=== PATIENT | female | born 1965 | race Caucasian/White ===

== ENCOUNTER 2020-02-19 11:45 | Outpatient (CLI) | payer BC, SELFPAY ==
--- NOTE | ~2020-02-19 | XR_ITS ---
XR knee LT 3V DATE: 02/19/2020 12:13 INDICATION: Left knee pain medially and anteriorly. No injury. TECHNIQUE: [place] and standing AP and lateral views COMPARISON: None FINDINGS: There is periarticular spurring at the patellofemoral and medial compartments, mild loss of height of medial compartment joint space. There is hypertrophic change of the lateral tibial spine. No fracture, dislocation, periosteal reaction or bone destruction or joint effusion. No radiopaque in tra-articular loose body or chondrocalcinosis. IMPRESSION: Osteoarthritis at the medial and patellofemoral compartments primarily Reviewed, dictated and finalized at location A. IMPRESSION: Osteoarthritis at the medial and patellofemoral compartments beck [place]
--- NOTE | ~2020-02-19 | US_ITS ---
EXAMINATION: US venous doppler [facility] DATE: 02/19/2020 12:37 INDICATION: Left lower limb pain TECHNIQUE: Grayscale ultrasound images without and with compression and Doppler ultrasound images of the left lower extremity veins were obtained. COMPARISON: None. FINDINGS: The visualized portions of left common femoral vein, profunda (deep) femoral vein, femoral vein, popl iteal vein, peroneal veins, posterior tibial veins, gastrocnemius vein and greater saphenous vein out flow are patent. 2.1 x 1.6 x 1.1 cm anechoic Agosto's cyst at the left popliteal fossa. IMPRESSION: 1. No deep venous thrombosis in the left lower limb. 2. Small left Agosto's cyst. Reviewed, dictated and finalized at location A.
--- NOTE | ~2020-02-19 | XR_ITS ---
XR humerus LT DATE: 02/19/2020 12:13 INDICATION: Distal left humeral area pain TECHNIQUE: AP and lateral views COMPARISON: None FINDINGS: No fracture or dislocation, periosteal reaction or bone destruction. Normal alignment at th e acromioclavicular, glenohumeral and elbow joints. IMPRESSION: Negative Reviewed, dictated and finalized at location A. IMPRESSION: Negative
[2020-02-19 12:48] LABS: Basophils Absolute Auto 0.1 K/mm3 (0.0-0.1); Basophils Percent Auto 1.1 % (0.2-1.2); Eosinophils Absolute Auto 1.4 K/mm3 (0-0.3); Eosinophils Percent Auto 16.7 % (0-4.4); Hematocrit 41.8 % (37.0-47.0); Immature Granulocyte Absolute 0.02 K/mm3 (0.00-0.031); Immature Granulocyte Percent A 0.2 % (0-0.5); Lymphocytes Absolute Auto 2.66 K/mm3 (0.9-3.2); Lymphocytes Percent Auto 32.4 % (18.3-44.2); Mean Corpuscular HGB Conc 33.5 g/dl (32-36); Mean Corpuscular Hemoglobin 31.4 pg (26-34); Mean Corpuscular Volume 93.7 fl (80-100); Monocytes Absolute Auto 0.6 K/mm3 (0.1-0.6); Monocytes Percent Auto 6.9 % (2.6-8.5); Neutrophils Absolute Auto 3.5 K/mm3 (1.3-6.7); Neutrophils Percent Auto 42.7 % (45.5-73.1); Platelet Count Result 286 k/mm3 (150-375); Red Blood Count 4.46 M/mm3 (4.2-5.4); White Blood Count 8.2 K/mm3 (4.5-10.0)
[2020-02-19 13:00] LABS: Hemoglobin A1C 5.5 % (<5.7)
[2020-02-19 13:03] LABS: Alanine Aminotransferase 21 U/L (4-35); Albumin Level 4.7 g/dL (3.5-5.1); Alkaline Phosphatase 63 U/L (38-126); Aspartate Amino Transferase 28 U/L (14-36); Bilirubin,Total 0.5 mg/dL (0.2-1.3); Blood Urea Nitrogen 10 mg/dL (7-17); Calcium 9.6 mg/dL (8.4-10.2); Carbon Dioxide 32 mmol/L (22-30); Chloride 103 mmol/L (98-107); Cholesterol 228 mg/dL (0-200); Estimated Glomerular Filt Rate > 60; Glucose 100 mg/dL (65-105); HDL Direct 51 mg/dL; Magnesium 2.2 mg/dL (1.6-2.3); Potassium 3.7 mmol/L (3.4-5.0); Sodium 139 mmol/L (137-145); Triglycerides 207 mg/dL (<150)
[2020-02-19 13:14] LABS: LDL Cholesterol Direct 128 mg/dL
[2020-02-19 13:42] LABS: Vitamin D 25 Hydroxy 32.8 ng/mL
== END 2020-02-19 11:46 | disposition home or self-care (01) ==
LOC: ANHIMG 11:54
PROVIDERS: PCP Family Medicine; Visit Provider Family Medicine
DX: M79.669 Pain in unspecified lower leg (principal); M79.602 Pain in left arm; M25.562 Pain in left knee; Z13.0 Encounter for screening for diseases of the blood and blood-forming organs and certain disorders involving the immune mechanism; R35.0 Frequency of micturition; Z13.220 Encounter for screening for lipoid disorders; R25.2 Cramp and spasm; Z13.21 Encounter for screening for nutritional disorder
CPT/HCPCS: 36415; 73060; 73562; 80053; 80061; 82306; 83036; 83735; 84443; 85025; 93971

== ENCOUNTER 2020-05-02 16:16 | Emergency (ER) | payer BC, SELFPAY ==
--- NOTE | ~2020-05-02 | XR_ITS ---
EXAMINATION: XR chest 2V 05/02/2020 16:49 INDICATION: Chest pain PROCEDURE: 2 view chest COMPARISON: No prior studies for comparison. FINDINGS: The lungs are clear. The cardiomediastinal silhouette is within normal limits. There are no pleural effusions. There is no pneumothorax suspected. IMPRESSION: 1: NO ACUTE CARDIOPULMONARY DISEASE. Reviewed, dictated and finalized at location A.
--- NOTE | 2020-05-02 16:19 | ECG_ITS ---
Measurements Intervals [place] Rate: 68 P: 27 HI: 160 QRS: -40 QRSD: 86 T: 38 QT: 373 QTc: 398 Interpretive Statements SINUS RHYTHM LEFT AXIS DEVIATION BORDERLINE ECG Electronically Signed On 05-02-2020 16:32:32 CDT by Sean Richard D.O.
[2020-05-02 16:23] VITALS: BP 184/86; PULSE 77; RESP 16; TEMP 37.3; O2SAT 100
[2020-05-02 16:39] LABS: Basophils Absolute Auto 0.1 K/mm3 (0.0-0.1); Basophils Percent Auto 1.1 % (0.2-1.2); Eosinophils Absolute Auto 1.1 K/mm3 (0-0.3); Eosinophils Percent Auto 11.9 % (0-4.4); Hemoglobin 14.5 g/dL (12.0-15.0); Immature Granulocyte Absolute 0.02 K/mm3 (0.00-0.031); Immature Granulocyte Percent A 0.2 % (0-0.5); Lymphocytes Absolute Auto 2.63 K/mm3 (0.9-3.2); Lymphocytes Percent Auto 29.6 % (18.3-44.2); Mean Corpuscular HGB Conc 33.7 g/dl (32-36); Mean Corpuscular Hemoglobin 31.6 pg (26-34); Mean Corpuscular Volume 93.7 fl (80-100); Mean Platelet Volume 8.7 fl (7.4-10.4); Monocytes Absolute Auto 0.7 K/mm3 (0.1-0.6); Monocytes Percent Auto 7.6 % (2.6-8.5); Neutrophils Absolute Auto 4.4 K/mm3 (1.3-6.7); Neutrophils Percent Auto 49.6 % (45.5-73.1); Platelet Count Result 280 k/mm3 (150-375); Red Blood Count 4.59 M/mm3 (4.2-5.4); Red Cell Distribution Width 11.9 % (11.5-14.5); White Blood Count 8.9 K/mm3 (4.5-10.0)
[2020-05-02 16:51] LABS: Anion Gap 10.6 mmol/L (7-16); Blood Urea Nitrogen 15 mg/dL (7-17); Calcium 9.9 mg/dL (8.4-10.2); Carbon Dioxide 28 mmol/L (22-30); Chloride 101 mmol/L (98-107); Estimated CRCL calculation 72 ml/min; Estimated Glomerular Filt Rate > 60; Glucose 94 mg/dL (65-105); Potassium 3.6 mmol/L (3.4-5.0); Sodium 136 mmol/L (137-145)
[2020-05-02 16:52] LABS: Partial Thromboplastin Time 30.1 SECONDS (22.3-36.8); Prothrombin Time 12.7 Seconds (11.1-14.7)
[2020-05-02 17:03] LABS: Troponin I < 0.012 ng/mL (0.000-0.034)
[2020-05-02] MEDS: PANTOPRAZOLE SODIUM IV 40 MG VIAL IV PUSH (19:37)
--- NOTE | 2020-05-02 19:43 | ED.GENADULT ---
HPI - General Adult General Chief complaint: Chest Pain Stated complaint: SYMPTOMS OF A HEART ATTACK Time Seen by Provider: 05/02/20 18:58 Source: patient Mode of arrival: ambulatory Limitations: no limitations History of Present Illness HPI narrative: This patient is a 54 year old female who presents for evaluation of multiple symptoms. She states for ther past 3 weeks she has been having intermittent right mid back pain that radiates to her abdomen. This pain occurs 10-15 times a day. She thinks it may improve with eating. She denies sob, nausea , vomiting or fever with this pain. She has not experienced this pain since this morning. She also reports intermittent episodes of indigestion in which she constantly belches for 10 days. She denies this symptoms being exacerbated by exertion. She denies sob with this. She also reports intermittent left leg pain and aching. She also has left arm pain that is intermittent and random . These 2 pain locations due not have at the same. She has not symptoms at this time. Related Data Home Medications Medication Instructions Recorded Confirmed meloxicam 05/02/20 05/02/20 Allergies Allergy/AdvReac Type Severity Reaction Status Date / Time sulfur dioxide Allergy Unknown Itching Verified 05/02/20 16:17 Review of Systems Review of Systems: All systems reviewed & are unremarkable except as noted in HPI and below Constitutional: Constitutional: Denies chills and Denies fever(s) Cardiovascular: Cardiovascular: Denies chest pain Respiratory: Respiratory: Denies cough and Denies dyspnea Gastrointestinal: Gastrointestinal: Denies abdominal pain, Denies diarrhea, Denies nausea and Denies vomiting Musculoskeletal: Musculoskeletal: Reports back pain and Reports myalgias Neurologic: Denies vertigo, Denies headache(s), Denies focal weakness and Reports numbness PMFSH Social History Social History Smoking status: Never smoker Second hand tobacco smoke exposure: Yes Alcohol intake: current Substance use: never Gender identity (if verbalized by the patient): Female Agree to blood products: Yes Exam Narrative: Exam Narrative: GENERAL: Well-appearing, well-nourished, and in no acute distress. HEAD: Normocephalic, atraumatic EYES: PERRLA and EOMI, conjunctiva clear without discharge EARS: TM's clear bilaterally without erythema or dullness NOSE: Nares clear, no rhinorrhea or epistaxis THROAT:Mucous membranes moist, Oropharynx normal without erythema, exudate, peritonsillar swelling or fluctuance NECK: Supple, without lymphadenopathy or mass RESPIRATORY: No respiratory distress, Airway patent, Respirations non-labored, Clear to auscultation without rales, rhonchi or wheeze HEART: Regular rate and rhythm. No murmur heard. Normal peripheral pulses. ABDOMEN: Soft, nontender, nondistended, normal active bowel sounds. No masses. No rebound or guarding, No organomegaly. EXTREMITIES: No edema, normal strength with full range of motion. SKIN: Warm, dry, normal color without rash NEURO: Alert and oriented x3. CN 2-12 grossly intact. No focal deficits. PSYCH: Normal mood and affect. Course Reevaluation(s) Reevaluation #1: PAtient has no complaints. I discussed what she is describing may be her gallbladder. Her pain is right flank and not left chest. I do not think this is cardiac. I discussed case with DR. Covarrubias inventory control coordinator for Dr. Ariza. He states we can stop patient currently HTN changemed and start benicar Date: 05/02/20 Time: 21:42 Vital Signs Vital signs: Vital Signs Temperature 99.1 F 05/02/20 16:23 Pulse Rate 77 05/02/20 16:23 Respiratory Rate 16 05/02/20 16:23 Blood Pressure 184/86 H 05/02/20 16:23 Pulse Oximetry 100 05/02/20 16:23 Temperature 99.1 F 05/02/20 16:23 Pulse Rate 77 05/02/20 22:19 Respiratory Rate 18 05/02/20 22:19 Blood Pressure 167/84 H 04/05
[2020-05-02 20:09] LABS: Add Urine Microscopic? YES; Appearance Urine Clear (Clear); Bacteria Urine Trace /hpf; Bilirubin Urine Negative (Negative); Blood Urine Negative (Negative); Color Urine Straw (Yellow); Glucose Urine UA Negative (Negative); Ketones Urine Negative (Negative); Leukocyte Esterase Ur 1+ LEU/UL (Negative); Mucus Urine Rare /lpf; Nitrate Urine Negative (Negative); Protein Urine Negative (Negative); RBC Urine 0-2 /hpf (0-2); Specific Grav Ur 1.008 (1.001-1.035); Squamous Epithelial Cell Urine Moderate /hpf (Few); Urobilinogen Urine Negative mg/dL (<2.0)
[2020-05-02 20:10] LABS: Partial Thromboplastin Time 29.7 SECONDS (22.3-36.8); Prothrombin Time 12.7 Seconds (11.1-14.7)
[2020-05-02 20:13] LABS: Alanine Aminotransferase 27 U/L (4-35); Albumin Level 4.6 g/dL (3.5-5.1); Alkaline Phosphatase 65 U/L (38-126); Aspartate Amino Transferase 31 U/L (14-36); Bilirubin,Total 0.6 mg/dL (0.2-1.3); Lipase 72 U/L (23-300); Magnesium 2.3 mg/dL (1.6-2.3)
[2020-05-02 20:16] VITALS: BP 170/90; PULSE 69; RESP 18; O2SAT 98
[2020-05-02 20:24] LABS: D Dimer 0.27 ug/mL (<0.48)
[2020-05-02 20:25] LABS: Troponin I < 0.012 ng/mL (0.000-0.034)
[2020-05-02 22:19] VITALS: BP 167/84; PULSE 77; RESP 18; O2SAT 98
== END 2020-05-02 22:24 | disposition home or self-care (01) ==
PROVIDERS: Emergency Medicine; Emergency Provider General Practice; PCP Family Medicine
DX: I10 Essential (primary) hypertension (principal); R10.9 Unspecified abdominal pain; R94.31 Abnormal electrocardiogram [ECG] [EKG]
CPT/HCPCS: 36415; 71046; 80048; 80076; 81001; 83690; 83735; 84484; 85025; 85380; 85610; 85730; 93005; 96374; 99284; C9113

== ENCOUNTER 2020-05-14 10:36 | Outpatient (CLI) | payer BC, SELFPAY ==
--- NOTE | ~2020-05-14 | US_ITS ---
EXAMINATION: US abdomen complete EXAM DATE: 05/14/2020 11:33 INDICATION: Right upper quadrant abdominal pain. TECHNIQUE: Multiple grayscale and Doppler images of the complete abdomen were obtained (by a technolo gist who performed the scan) and subsequently reviewed. There is no prior study for comparison. FINDINGS: The abdominal aorta is normal in caliber. Visualized portion IVC is patent. The pancreatic head a nd body are normal in appearance. The pancreatic tail is not visualized. The liver has normal echogenicity and contour. There are no focal liver lesions identified. There is no evidence of intrahepatic biliary duct dilation. Portal venous flow was seen in the hepatopedal , normal direction and has normal Doppler waveform. Common bile duct measures 4 mm, which is normal. The gallbladder wall is normal in thickness, with ex pected amount of distention. No sonographic evidence of pericholecystic fluid. There is no cholelit hiases. Technologist performing exam reports patient did not demonstrate sonographic Herman's sign. Please note that this sign is less reliable in patients who have received pain medication. Right kidney: There is normal contour and echogenicity. It measures 9.7 x 5.3 x 4.7 centimeters. T here are no focal renal lesions identified. There is no hydronephrosis. Left kidney: There is normal contour and echogenicity. It measures 10.7 x 5.9 x 4.8 centimeters. T here are no focal renal lesions identified. There is no hydronephrosis. The spleen measures 10 centimeters and is morphologically normal. IMPRESSION: 1. Unremarkable complete abdominal ultrasound exam. Reviewed, dictated and finalized at location A.
== END 2020-05-14 10:37 | disposition home or self-care (01) ==
PROVIDERS: PCP Family Medicine; Visit Provider Family Medicine
DX: R10.11 Right upper quadrant pain (principal)
CPT/HCPCS: 76700

== ENCOUNTER 2020-05-21 10:18 | Emergency (ER) | payer BC, SELFPAY ==
[2020-05-21 10:43] VITALS: BP 174/73; PULSE 75; RESP 20; TEMP 36.7; O2SAT 100
--- NOTE | 2020-05-21 10:53 | ED.FEMALEGU ---
HPI - Female Genitourinary General Chief complaint: Urogenital-Female Stated complaint: uti History of Present Illness HPI Narrative: This is a 54-year-old female comes in complaining of left back pain and lower abdominal pain states that the symptoms started approximately 3 to 4 days ago she started taking cranberry juice because it was when she urinated when she felt the pain the most. Symptoms have not went away patient states she is having frequency and urgency and it feels like when she had a UTI in the past. Patient denies any fever nausea vomiting and/or diarrhea Related Data Home Medications Medication Instructions Recorded Confirmed ospemifene 60 mg tablet 60 mg PO DAILY 05/03/20 05/21/20 Allergies Allergy/AdvReac Type Severity Reaction Status Date / Time sulfur dioxide Allergy Unknown Itching Verified 05/03/20 10:43 Review of Systems Review of Systems: Narrative: CONSTITUTIONAL: Denies fever, chills, or sweats. EYES: Denies visual changes, redness, or discharge. ENT: Denies rhinorrhea, congestion, sore throat, or otalgia. CARDIOVASCULAR:Denies chest pain, palpitations, or edema. RESPIRATORY: Denies cough or dyspnea. GASTROINTESTINAL: Denies abdominal pain, nausea, vomiting, or diarrhea. GENITOURINARY: Positive dysuria or hematuria. SKIN:[Denies rash or itching. MUSCULOSKELETAL:Denies back pain, joint pain, or myalgia. NEUROLOGIC: Denies headache, numbness, or weakness. PSYCHIATRIC:Denies anxiety or depression [facility] Family History Family History (Updated 05/03/20 @ 13:58 by Denisa Ariza DO) Father Hypertension Heart disease, Onset Age: 55 Grandparent Family history of alcoholism Social History Social History Smoking status: Never smoker Second hand tobacco smoke exposure: Yes Alcohol intake: current Substance use: never Gender identity (if verbalized by the patient): Female Agree to blood products: Yes Comments At time as signature, I have reviewed and agree with nursing past medical, social, surgical and family history. Please see nursing chart for further information. There is no relevant family history pertinent to the presenting complaint. Exam Narrative: Exam Narrative: GENERAL:Well-appearing, well-nourished, and in no acute distress. HEAD:Normocephalic, atraumatic. EYES: PERRLA and EOMI. ENT: Nares clear, no rhinorrhea or epistaxis. Mucous membranes moist. NECK: Supple. CHEST: Clear to auscultation. No respiratory distress. HEART: Regular rate and rhythm. No murmur heard. Normal peripheral pulses. ABDOMEN: Soft, nontender, nondistended, normal active bowel sounds. Lower left pain with palpitations mid lower abdominal pressure with potation's EXTREMITIES: Normal range of motion. No edema. SKIN: Warm, dry, no rash. NEURO: No focal deficits. Alert and oriented x3. Course Vital Signs Vital signs: Vital Signs Temperature 98.1 F 05/21/20 10:43 Pulse Rate 75 05/21/20 10:43 Respiratory Rate 20 05/21/20 10:43 Blood Pressure 174/73 H 05/21/20 10:43 Pulse Oximetry 100 05/21/20 10:43 Temperature 98.1 F 05/21/20 10:43 Pulse Rate 75 05/21/20 10:43 Respiratory Rate 20 05/21/20 10:43 Blood Pressure 174/73 H 05/21/20 10:43 Pulse Oximetry 100 05/21/20 10:43 MDM - Female Genitourinary MDM Narrative Medical decision making narrative: Appendicitis cholecystitis Differential Diagnosis Differential diagnosis: Likely urinary tract infection, cervicitis and cystitis Lab Data Labs: Urine Glucose Negative Reference Range: Negative Urine Bilirubin Negative Reference Range: Negative Urine Ketone Negative Reference Range: Negative Urine Specific [place] 1.005 Reference Range:1.001-1.035 Urine Blood Negative Reference Range: Negative * *
== END 2020-05-21 11:04 | disposition home or self-care (01) ==
PROVIDERS: Emergency Provider Nurse Practitioner Family; PCP Family Medicine
DX: N30.90 Cystitis, unspecified without hematuria (principal); I10 Essential (primary) hypertension
CPT/HCPCS: 81003; 87086; 99213; G0463

== ENCOUNTER 2020-06-05 08:42 | Outpatient (CLI) | payer BC, SELFPAY ==
--- NOTE | 2020-06-05 09:01 | EST_ITS ---
Patient Info Name: Milagros Hobbs Age: 54 years : 1965 Gender: Female Ht: 63 in Wt: 191 lbs BSA: 2.00 m2 BP: 120 / 67 mmHg Exam Date: 06/05/2020 9:27 AM Exam Location: [facility] Patient Status: Outpatient Admit Date: 06/05/2020 Staff Ordering Physician: Denisa Ariza DO Gaming Floor Supervisor: Sanford Herman RDCS, RT Attending Provider: CARROL JARAMILLO Referring Physician: To ELKINS; Exercise Technologist: Sanford Herman RDCS, RT Exam Type: CA stress echo Study Info Indications R07.89 - Other chest pain Treadmill exercise stress echocardiogram is performed. Summary 1. 1. Negative Daniel exercise stress test for ischemic ST changes by ECG criteria. 2. 2. Good functional capacity, achieving 10 METs of workload. 3. 3. Appropriate HR response to exercise. 4. 4. Appropriate HR recovery at 1 minute post exercise. 5. 5. Incidental finding of right ventricular enlargement. 6. 6. Negative stress echocardiogram for ischemia by wall motion analysis. 7. 7. Patient informed of the above results. Stress Echo Findings Left Ventricle Appropriate increase in LV endocardial thickening with systole. Appropriate augmentation of contractility with systole. No wall motion abnormality. Left Ventricle Normal LV systolic function, no wall motion abnormality. Right Ventricle Incidental finding of moderate RV enlargement. Tricuspid Valve Name Value Normal TV Regurgitation Doppler TR Peak Velocity 227.65 cm/s TR Peak Gradient 21 mmHg Estimated PAP/RSVP RA Pressure 10 mmHg <=5 PA Systolic Pressure 31 mmHg <36 RV Systolic Pressure 31 mmHg <36 Protocol: Daniel Stress ECG Details Stage: REST Duration (min): 11 min : 0 sec Speed (mph): 0.0 Grade (%): 0 HR (bpm): 65 SBP (mmHg): 120 DBP (mmHg): 63 METS: --- Stage: REST Duration (min): 15 min : 39 sec Speed (mph): 0.0 Grade (%): 0 HR (bpm): 84 SBP (mmHg): 120 DBP (mmHg): 63 METS: --- Stage: STAGE 1 Duration (min): 1 min : 0 sec Speed (mph): 1.7 Grade (%): 10 HR (bpm): 99 SBP (mmHg): 120 DBP (mmHg): 63 METS: --- Stage: STAGE 1 Duration (min): 2 min : 0 sec Speed (mph): 1.7 Grade (%): 10 HR (bpm): 108 SBP (mmHg): 120 DBP (mmHg): 63 METS: --- Stage: STAGE 1 Duration (min): 3 min : 0 sec Speed (mph): 1.7 Grade (%): 10 HR (bpm): 109 SBP (mmHg): 164 DBP (mmHg): 67 METS: --- Stage: STAGE 2 Duration (min): 1 min : 0 sec Speed (mph): 2.5 Grade (%): 12 HR (bpm): 118 SBP (mmHg): 164 DBP (mmHg): 67 METS: --- Stage: STAGE 2 Duration (min): 2 min : 0 sec Speed (mph): 2.5 Grade (%): 12 HR (bpm): 12
== END 2020-06-05 08:43 | disposition home or self-care (01) ==
PROVIDERS: PCP Family Medicine; Visit Provider Family Medicine
DX: R07.9 Chest pain, unspecified (principal)
CPT/HCPCS: 93351

== ENCOUNTER 2020-06-19 10:00 | Outpatient (RCR) | payer BC, SELFPAY ==
--- NOTE | 2020-06-17 16:01 | PTOPEVAL ---
INITIAL PHYSICAL THERAPY EVALUATION and PLAN OF CARE Thank you for referring Milagros Hobbs to [facility].? Milagros is scheduled to be seen for physical therapy? 0-2x/week for 3 weeks. Please review, sign, date and return this plan of care LUIGI. I agree with and certify that the following plan of care is medically necessary. Referring Physician Date Admitting Provider: Attending Provider: Denisa Ariza DO Referring Provider: *PT Outpatient Evaluation Start: 06/17/20 14:29 Freq: Status: Active Protocol: Document 06/17/20 14:30 CATRACHITO (Rec: 06/17/20 16:01 CATRACHITO [id number]) Therapy Assessment Status Assessment Status Assessment Status Evaluation Outpatient Past Medical History Past Medical History Source of Past Medical History Patient,Recalled from Previous Visit, Confirmed with Patient /Family Neurological History Hx Neurological Disorders No Significant History Cardiovascular History Hx Hypercholesterolemia Yes Hx Hypertension Yes Hx Other Cardiac Disorders Yes: enlarged R ventricle Respiratory History Hx Respiratory Disorders No Significant History Gastrointestinal History Hx Gastrointestinal Disorders No Significant History Genitourinary History Hx Genitourinary Disorders No Significant History Musculoskeletal History Hx Arthritis Yes: both shoulders, both knees Hematological History Hx Hematological Disorders No Significant History Endocrine History Hx Endocrine Disorders No Significant History HEENT History Hx HEENT Disorders No Significant History Integumentary History Hx Skin Disorders No Significant History Reproductive History Hx Reproductive Disorders No Significant History Psychosocial History Hx Psychiatric Disorders No Significant History Pain History History of Any Previous or Ongoing No Significant History Instance of Pain Anesthesia History Hx Anesthesia Reactions No Significant History Evaluation Information Problem Diagnosis pleurodynia Onset ~ 2 months Subjective Information began having L sided anterior Query Text:As Reported By Patient/ chest pain - thought she was Family having a heart attack - testing done - all negative - when DO did palpation - tenderness present along ribs Always having a constant pain - L upper arm was going numb. DO did a technique on - has been feeling much better since then. Feels
--- NOTE | 2020-06-26 11:29 | PCPTNOTE ---
Follow up phone call made this date. Milagros stated that she still has an area R mid/lower back that will spasm on occasions, but no upper L chest discomfort. She has purchased a foam roller and doing well. She wishes to discontinue PT at this time as she feels she is doing well.
--- NOTE | 2020-06-26 11:31 | PCPTNOTE ---
PHYSICAL THERAPY DISCHARGE SUMMARY Admitting Provider: Attending Provider: Denisa Ariza DO Patient:Milagros Hobbs Date of :1965 Follow up phone call was made to Milagros today. She stated that she is doing well and would like to be discharged from PT. She will have an occasional spasm with right sided paraspinal muscles - low thoracic/upper lumbar region, but no c/o's of L sided chest or back pain. She has purchased a foam roller and doing HEP on it as well as theraband HEP. Patient?s initial visit was on 06/17/2020 14:15 and she had a total of 2 visits. The goals have been met. Thank you for referring Milagros to [facility]. Please review, sign, date and return this discharge summary LUIGI. I have been updated about Milagros's current status and I agree with discharge from the above service at this time. Referring Physician Date
== END 2020-06-28 12:11 | disposition home or self-care (01) ==
LOC: ANHHIPT 10:00
PROVIDERS: PCP Family Medicine; Visit Provider Family Medicine
DX: R07.81 Pleurodynia (principal)
CPT/HCPCS: 97110; 97140; 97161

== ENCOUNTER 2020-09-20 07:32 | Outpatient (CLI) | payer BC, SELFPAY ==
--- NOTE | 2020-11-03 11:48 | WPDHOMESLEEP ---
Sleep Study - Home Unattended Date of Study: 09/20/20 Ordering Provider: Jon Fox MD Interpreting Physician: Melisa Schultz MD Home Sleep Study Type: Apnea Link Air Height: 1.6 m Weight: 86.636 kg Body Mass Index: 33.8 Neck Circumference (inches): 17.75 [place]: 4 Reason for Sleep Study excessive daytime sleepiness Sleep History Milagros Hobbs is a 54 year-old female with An enlarged right ventricle seen on echocardiogram. She has excessive daytime sleepiness. She has difficulty falling asleep at night and she wakes up throughout the night. It is difficult for her to wake in the morning. She does not awaken from sleep feeling short of breath. She rarely awakens at night with heartburn, belching or coughing. She frequently snores and occasionally is loud enough that others complain about it. She frequently has trouble sleeping with a cold. She rarely wakes up gasping for breath during the night. She never has breathing problems at night observed by others. She constantly sweats excessively at night. She rarely notices her heart pounding or beating irregularly at night and rarely falls asleep during the day. She never falls asleep involuntarily or while driving. She does not fall asleep during physical effort. She does not have loss of muscle tone with strong emotion, does not have daytime difficulties due to excessive sleepiness. She is a housewife. She does not feel paralyzed on waking or falling asleep nor does she have vivid dreamlike scenes upon awakening or falling asleep. She is never afraid to go to sleep. she rarely has nightmares. She occasionally remembers her dreams. She constantly has racing thoughts. She occasionally feels sad or depressed. She constantly has anxiety. She rarely has muscular tension. She occasionally notices parts of her body jerking. She never kicks at night. She occasionally has crawling and aching feelings in her legs and leg pain during the night. She does not have morning jaw pain. She rarely grinds her teeth during sleep. She occasionally has bothered by pain during the day, occasionally is awakened by pain at night, occasionally wakes up feeling stiff in the morning with sore or achy muscles, and pain in the neck and spine. She has sexual problems, depression and feels unable to have a good time. Her normal bedtime is 11:30 p.m. falling asleep within 30 minutes, at times taking as long as 2 hours to initiate sleep. She wakes up 3-5 times during the night. While awake, she will go urinate, then lie awake thinking things over. she wakes in the morning at 8:00 a.m.. The weekend schedule is the same. She does not take naps in the afternoon or evening. A short 10 or 15 minutes nap may be refreshing. She feels better in the evening compared to the morning.. Habits: Never smoked tobacco. Caffeine 1-2 cups daily. Alcohol rarely 2 or 3 beverages when she does drink. No recreational drugs. [facility] Past Medical History Medical History (Updated 11/03/20 @ 12:00 by Melisa Schultz MD) Essential hypertension Hyperlipidemia Right ventricular enlargement Family History Family History Father Hypertension Heart disease, Onset Age: 55 Grandparent Family history of alcoholism Sibling Dementia Sanford-Creutzfeldt disease Social History Social History Smoking status: Never smoker Second hand tobacco smoke exposure: No Alcohol intake: current Substance use: never Gender identity (if verbalized by the patient): Female Agree to blood products: Yes Medications Home Medications Medication Instructions Recorded Confirmed Type multivit with 1 tablet PO DAILY #90 tablet 02/19/20 08/12/20 Rx [id number] 8 mg iron-400 mcg-300 mcg tablet ospemifene 60 mg tablet 60 mg PO DAILY 05/03/20 08/12/20 History olmesartan 20 mg tablet 20 mg PO DA
[2020-11-03 12:05] VITALS: BMI 33.8
== END 2020-09-20 07:33 | disposition home or self-care (01) ==
LOC: ANHCSM 07:33
PROVIDERS: PCP Family Medicine; Visit Provider Internal Medicine Critical Care Medicine
DX: G47.33 Obstructive sleep apnea (adult) (pediatric) (principal)
CPT/HCPCS: 95806

== ENCOUNTER 2020-12-03 10:25 | Outpatient (CLI) | payer BC, SELFPAY ==
--- NOTE | ~2020-12-03 | XR_ITS ---
EXAMINATION: XR chest 2V DATE: 12/03/2020 10:41 INDICATION: Dyspnea, unspecified. TECHNIQUE: Frontal and lateral views of the chest were obtained. COMPARISON: Chest 2 views 05/02/2020 FINDINGS: The chest demonstrates clear lungs without pneumonia, pleural effusion, or pneumothorax. Th e heart size is normal. IMPRESSION: 1. No acute cardiopulmonary disease. Reviewed, dictated and finalized at location A. GER [employer]
== END 2020-12-03 10:26 | disposition home or self-care (01) ==
LOC: ANHIMG 10:30
PROVIDERS: PCP Family Medicine; Visit Provider Family Medicine
DX: R06.00 Dyspnea, unspecified (principal)
CPT/HCPCS: 71046

== ENCOUNTER 2022-01-09 01:03 | Day surgery (SDC) | payer BC, SELFPAY ==
[2022-01-02 11:07] VITALS: BMI 36.6
--- NOTE | 2022-01-08 16:57 | P.HP_ITS ---
History of Present Illness History of Present Illness Consent: Risks, benefits, and alternatives have been discussed and questions answered. Patient agrees to proceed with procedure. Chief complaint: Left LQP Narrative: Milagros Hobbs is a 56 year old female Referred for colon cancer screening. [facility] Past Medical History Medical History Essential hypertension Hyperlipidemia Right ventricular enlargement Family History Family History Father Hypertension Heart disease, Onset Age: 55 Grandparent Family history of alcoholism Sibling Dementia Sanford-Creutzfeldt disease Social History Social History Smoking status: Never smoker Second hand tobacco smoke exposure: No Alcohol intake: current Drinks per week: 1 Alcohol use details: 3 drinks per month Substance use: never Living arrangements: with family Gender identity (if verbalized by the patient): Female Spiritual care concerns: No Agree to blood products: Yes Meds Home Medications and Allergies Home Medications Medication Instructions Recorded Confirmed Type multivit with 1 tablet PO DAILY #90 tablet 02/19/20 01/02/22 Rx wutfxhjs-vnvu-EH-lutein 8 mg iron-400 mcg-300 mcg tablet ospemifene 60 mg tablet 60 mg PO DAILY 05/03/20 01/02/22 History fluticasone propionate 50 1 spray INTRANASAL DAILY 12/23/21 01/02/22 History mcg/actuation nasal spray,suspension cholecalciferol (vitamin D3) 125 125 mcg PO DAILY #90 cap 12/26/21 01/02/22 Rx mcg (5,000 unit) capsule sertraline 50 mg tablet 50 mg PO DAILY #90 tablet 01/01/22 01/02/22 Rx albuterol sulfate 2 inh INHALATION Q4H PRN 01/02/22 01/02/22 History aspirin 81 mg PO DAILY 01/02/22 01/02/22 History olmesartan 20 mg PO DAILY 01/02/22 01/02/22 History Allergies Allergy/AdvReac Type Severity Reaction Status Date / Time sulfur dioxide Allergy Unknown Itching Verified 01/02/22 11:04
--- NOTE | 2022-01-08 16:59 | WPDGICN ---
Assessment and Plan Assessment and plan (1) Screening for colon cancer: Code(s): Z12.11 - Encounter for screening for malignant neoplasm of colon Status: Acute Assessment and Plan: Colonoscopy with possible biopsy or polypectomy or cautery or injection of substances. GI Consult Note Consult date/time: 01/08/22 16:59 HPI: Milagros Hobbs is a 56 year old female Who Is referred for colon cancer screening. Also, I am asked to see because of irregular bowel movements. Her bowels alternate between loose and hard. She also has had abdominal pain with that primarily in the left lower quadrant. This sounds like irritable bowel syndrome. . Review of Systems Review of Systems: All systems reviewed & are unremarkable except as noted in HPI and below PMFSH Past Medical History Medical History Essential hypertension Hyperlipidemia Right ventricular enlargement Surgical History Surgical History Hx of tonsillectomy Family History Family History Father Hypertension Heart disease, Onset Age: 55 Grandparent Family history of alcoholism Sibling Dementia Sanford-Creutzfeldt disease Social History Social History Smoking status: Never smoker Second hand tobacco smoke exposure: No Alcohol intake: current Drinks per week: 1 Alcohol use details: 3 drinks per month Substance use: never Living arrangements: with family Gender identity (if verbalized by the patient): Female Spiritual care concerns: No Agree to blood products: Yes Meds Home Medications and Allergies Home Medications Medication Instructions Recorded Confirmed Type multivit with 1 tablet PO DAILY #90 tablet 02/19/20 01/09/22 Rx zdjfebch-qfya-RT-lutein 8 mg iron-400 mcg-300 mcg tablet ospemifene 60 mg tablet 60 mg PO DAILY 05/03/20 01/09/22 History fluticasone propionate 50 1 spray INTRANASAL DAILY 12/23/21 01/09/22 History mcg/actuation nasal spray,suspension cholecalciferol (vitamin D3) 125 125 mcg PO DAILY #90 cap 12/26/21 01/09/22 Rx mcg (5,000 unit) capsule sertraline 50 mg tablet 50 mg PO DAILY #90 tablet 01/01/22 01/09/22 Rx albuterol sulfate 2 inh INHALATION Q4H PRN 01/02/22 01/09/22 History aspirin 81 mg PO DAILY 01/02/22 01/09/22 History olmesartan 20 mg PO DAILY 01/02/22 01/09/22 History Allergies Allergy/AdvReac Type Severity Reaction Status Date / Time sulfur dioxide Allergy Unknown Itching Verified 01/09/22 07:07 Exam Resp: Auscultation: clear to auscultation bilaterally Cardio: Rate: regular rate Rhythm: regular rhythm GI: GI Palp: Yes Soft to palpation and No Tenderness to palpation present (GI)
[2022-01-09 07:08] VITALS: BP 162/84; PULSE 87; RESP 19; TEMP 36.6; O2SAT 99; BMI 35.6
[2022-01-09] MEDS: LACTATED RINGERS 1,000 ML 150 ML IV CONT (07:13)
--- NOTE | 2022-01-09 07:37 | P.PNAN_ITS ---
Anes - Initial Pre Proc Eval Procedure: Operation Date: 01/09/22 08:30 Proposed Procedures p Colonoscopy - See Reyes MD Date/Time: 01/09/22 07:37 Surgeon: See Reyes MD Pre Op Diagnosis: Left LQP Patient Data Age: 56 Gender: F Height: 1.57 m Weight: 88.5 kg Last Vital Signs Temp 36.6 C 01/09/22 07:08 Pulse 87 01/09/22 07:08 Resp 19 01/09/22 07:08 BP 162/84 H 01/09/22 07:08 Pulse Ox 99 01/09/22 07:08 Allergies Allergy/AdvReac Type Severity Reaction Status Date / Time sulfur dioxide Allergy Unknown Itching Verified 01/09/22 07:07 Home Medications Medication Instructions Recorded Confirmed Type multivit with 1 tablet PO DAILY #90 tablet 02/19/20 01/09/22 Rx ixadfjyc-xtin-RC-lutein 8 mg iron-400 mcg-300 mcg tablet ospemifene 60 mg tablet 60 mg PO DAILY 05/03/20 01/09/22 History fluticasone propionate 50 1 spray INTRANASAL DAILY 12/23/21 01/09/22 History mcg/actuation nasal spray,suspension cholecalciferol (vitamin D3) 125 125 mcg PO DAILY #90 cap 12/26/21 01/09/22 Rx mcg (5,000 unit) capsule sertraline 50 mg tablet 50 mg PO DAILY #90 tablet 01/01/22 01/09/22 Rx albuterol sulfate 2 inh INHALATION Q4H PRN 01/02/22 01/09/22 History aspirin 81 mg PO DAILY 01/02/22 01/09/22 History olmesartan 20 mg PO DAILY 01/02/22 01/09/22 History Patient hx anesthesia problems: none Family hx anesthesia problems: none Results Review: All pre-operative results and documents have been reviewed as part of the pre-operative evaluation. [facility] Past Medical History Medical History (Updated 12/26/21 @ 10:21 by Denisa Ariza DO) Essential hypertension Hyperlipidemia Right ventricular enlargement Surgical History Surgical History (Updated 01/09/22 @ 07:40 by Jorge Claudio MD) Hx of tonsillectomy Family History Family History Father Hypertension Heart disease, Onset Age: 55 Grandparent Family history of alcoholism Sibling Dementia Sanford-Creutzfeldt disease Social History Social History Smoking status: Never smoker Second hand tobacco smoke exposure: No Alcohol intake: current Drinks per week: 1 Alcohol use details: 3 drinks per month Substance use: never Living arrangements: with family Gender identity (if verbalized by the patient): Female Spiritual care concerns: No Agree to blood products: Yes Anes - Eval Final PreProcedure Day of Procedure 01/09/22 07:37 Patient weight: obese Heart: regular rate and rhythm Lungs: clear to auscultation Airway: Mallampati scale class II Neurological: alert and oriented Last oral intake: >/= 8 hours ASA classification: III Emergent: no Anesthetic plan: proceed Anesthesia type and monitoring: general GIVS and standard monitoring Results Review: All pre-operative results and documents have been reviewed as p art of the pre-operative evaluation. Informed Consent: The patient's anesthetic plan and its attendant risks and benefits were discussed with the patient/family/POA. Questions were solicited and answers provided to the satisfaction of the patient
[2022-01-09 08:40] VITALS: BP 106/69; PULSE 48; RESP 15; O2SAT 99
[2022-01-09 08:50] VITALS: BP 106/61; PULSE 72; RESP 19; O2SAT 99
[2022-01-09 09:00] VITALS: BP 146/84; PULSE 58; RESP 23; O2SAT 100
== END 2022-01-09 09:11 | disposition home or self-care (01) ==
PROVIDERS: PCP Family Medicine; Visit Provider Internal Medicine Gastroenterology
PROC: 0DJD8ZZ Inspection of Lower Intestinal Tract, Via Natural or Artificial Opening Endoscopic (ICD-10-PCS; CPT 45378; principal; 2022-01-09 08:30)
DX: Z12.11 Encounter for screening for malignant neoplasm of colon (principal); K57.30 Diverticulosis of large intestine without perforation or abscess without bleeding; K64.8 Other hemorrhoids; I10 Essential (primary) hypertension; E78.5 Hyperlipidemia, unspecified
CPT/HCPCS: 45378; J2001; J2704; J7120

== ENCOUNTER 2022-01-16 14:04 | Outpatient (CLI) | payer BC, SELFPAY ==
--- NOTE | ~2022-01-16 | CT_ITS ---
EXAMINATION: CT abdomen pelvis w con INDICATION: Left lower quadrant pain TECHNIQUE: Computed tomographic images of the abdomen and pelvis were obtained after the administrati on of 100 cc of Omnipaque 350 intravenous contrast. The dose-length product (DLP) was 776.62 mGy-cm. Automated exposure control and iterative reconstruction technique were employed. COMPARISON: None available FINDINGS: The lung bases are clear. The heart size is normal. There is a small sliding hiatal hernia. A punctate calcification of the liver likely reflect old granulomatous disease. The spleen, pancreas , gallbladder, and adrenal glands are normal. The kidneys are unremarkable. No pathologically enlarge d abdominal or pelvic lymph nodes are identified. There is no free intraperitoneal gas or evidence of bowel obstruction. Colonic diverticulosis is present without evidence of diverticulitis. The appendi x is normal. There is a fat-containing umbilical hernia. IMPRESSION: 1. No CT correlate for the patient's symptoms. Diverticulosis without evidence of diverticulitis. Reviewed, dictated and finalized at location A.
== END 2022-01-16 14:05 | disposition home or self-care (01) ==
PROVIDERS: PCP Family Medicine; Visit Provider Family Medicine
DX: R10.32 Left lower quadrant pain (principal); K57.90 Diverticulosis of intestine, part unspecified, without perforation or abscess without bleeding
CPT/HCPCS: 74177; Q9967

== ENCOUNTER → 2023-02-17 11:44 | Outpatient (CLI) | payer BC, SELFPAY ==
--- NOTE | ~2023-02-17 | XR_ITS ---
XR lumbar spine min 4V 02/17/2023 12:08 Indication: Low back pain Procedure: 5 views lumbar spine Comparison: No prior studies for comparison. Findings: Vertebral body heights are maintained. No significant disc narrowing. No fracture, subluxat ion or dislocation. There is mild-moderate lower lumbar facet hypertrophy. No acute fracture or traum atic malalignment. Pedicles intact. Sacral foramen are symmetric. Impression: 1: Mild lumbar spondylosis. Reviewed, dictated and finalized at location B. Impression: 1: Mild lumbar spondylosis.
--- NOTE | ~2023-02-17 | XR_ITS ---
XR knee RT 3V 02/17/2023 12:09 Indication: Right knee swelling Procedure: 3 views right knee Comparison: No prior studies for comparison. Findings: There is mild tricompartment osteoarthritis. No fracture, subluxation or dislocation. No arnel int effusion. Impression: 1: Mild tricompartment osteoarthritis. Reviewed, dictated and finalized at location B. Impression: 1: Mild tricompartment osteoarthritis.
== END ==
PROVIDERS: PCP Family Medicine; Visit Provider Nurse Practitioner Family
DX: M47.896 Other spondylosis, lumbar region (principal); M17.11 Unilateral primary osteoarthritis, right knee
CPT/HCPCS: 72110; 73562

== ENCOUNTER → 2023-04-30 13:08 | Outpatient (CLI) | payer BC, SELFPAY ==
--- NOTE | ~2023-04-30 | MM_ITS ---
EXAMINATION: MM screening angella BI w paty HISTORY: Screening mammogram TECHNIQUE: Craniocaudal and mediolateral oblique 3-D tomosynthesis images were obtained and synthetic 2-D images were generated. CAD analysis was submitted and interpreted. COMPARISON: 10/09/2019 BREAST PARENCHYMAL COMPOSITION: The breasts are heterogeneously dense, which may obscure small masses . FINDINGS: No suspicious mass, calcification, or architectural distortion are identified in either prem ast to suggest malignancy. There has been no suspicious interval change. IMPRESSION: 1. No mammographic evidence of malignancy. 2. Recommend routine screening mammography in one year. BI-RADS Category 1: Negative Reviewed, dictated and finalized at location A.
== END ==
PROVIDERS: PCP Nurse Practitioner Family; Visit Provider Nurse Practitioner Family
DX: Z12.31 Encounter for screening mammogram for malignant neoplasm of breast (principal)
CPT/HCPCS: 77063; 77067

== ENCOUNTER → 2023-08-18 15:20 | Outpatient (CLI) | payer BC, SELFPAY ==
--- NOTE | ~2023-08-18 | XR_ITS ---
XR knee RT 3V DATE: 08/18/2023 15:53 INDICATION: Right knee pain TECHNIQUE: 4 views COMPARISON: None FINDINGS: There is moderately prominent tricompartment osteoarthritis with periarticular spurring at all 3 compartments and moderate loss of medial compartment joint space height. No fracture or dislocation or joint effusion. No radiopaque intra-articular loose body or chondrocalc inosis is evident. No periosteal reaction or bone destruction. IMPRESSION: Moderately prominent tricompartment osteoarthritis, greatest at the medial compartment Reviewed, dictated and finalized at location B. TICE OR STUDENT TEACHER
--- NOTE | ~2023-08-18 | XR_ITS ---
XR shoulder LT min 2V DATE: 08/18/2023 15:53 INDICATION: Left shoulder pain TECHNIQUE: 4 views COMPARISON: None FINDINGS: Normal alignment at the acromioclavicular and glenohumeral joints. No fracture or dislocati on, periosteal reaction or bone destruction or abnormal left shoulder soft tissue calcification. IMPRESSION: No significant abnormality Reviewed, dictated and finalized at location B. TALIZER TENDER IMPRESSION: No significant abnormality
== END ==
PROVIDERS: PCP Nurse Practitioner Family; Visit Provider Nurse Practitioner Family
DX: M25.561 Pain in right knee (principal); M25.512 Pain in left shoulder; M17.11 Unilateral primary osteoarthritis, right knee
CPT/HCPCS: 73030; 73562

== ENCOUNTER 2023-08-30 16:49 | Outpatient (CLI) | payer BC, SELFPAY ==
--- NOTE | ~2023-08-30 | MR_ITS ---
EXAMINATION: MR brain/brain stem wo con DATE: 08/30/2023 17:30 INDICATION: Amnesia TECHNIQUE: Magnetic resonance imaging (MRI) of the brain and brainstem was performed without intraven ous contrast. Sequences included sagittal and axial T1-weighted SE, axial diffusion-weighted FS SE, a xial 3D SWAN, axial T2-weighted FLAIR, and axial T2-weighted FSE. Apparent diffusion coefficient (ADC ) maps were created. COMPARISON: None. FINDINGS: There are no areas of restricted diffusion to suggest acute infarction. No intracranial hemorrhage or abnormal intracranial mass lesion. There are no intraparenchymal signal abnormalities seen on the ot her pulse sequences. The ventricles are symmetric and normal in size. There are no abnormal extra-axi al fluid collections. Flow voids are seen in the cerebral arteries on the T2-weighted sequences consi stent with their expected patency. Mild mucosal thickening the bilateral ethmoid and maxillary sinuse s and mucous retention cyst in the right maxillary sinus. Visualized orbits and soft tissues are unre markable. IMPRESSION: 1. Normal brain. Reviewed, dictated and finalized at location A. REDUCTION ROLLER IMPRESSION: 1. Normal brain.
== END 2023-08-30 16:50 | disposition home or self-care (01) ==
LOC: ANHIMG 16:51
PROVIDERS: PCP Nurse Practitioner Family; Visit Provider Nurse Practitioner Family
DX: R41.3 Other amnesia (principal)
CPT/HCPCS: 70551

== ENCOUNTER 2023-09-30 17:34 | Outpatient (CLI) | payer BC, SELFPAY ==
--- NOTE | ~2023-09-30 | XR_ITS ---
EXAMINATION: XR chest 2V DATE: 09/30/2023 17:45 INDICATION: Shortness of breath one week post COVID infection TECHNIQUE: PA and lateral views of the chest were obtained. COMPARISON: Chest radiograph dated 12/03/2020 FINDINGS: The lungs remain clear with no focal airspace opacities, pulmonary edema, pleural effusion or pneumot horax. The cardiomediastinal silhouette is normal. Minimal S-shaped curvature of the thoracic spine w ith mild to moderate spondylosis. IMPRESSION: 1. No acute cardiopulmonary disease. Reviewed, dictated and finalized at location A. LAR ALARM SUPERINTENDENT
== END 2023-09-30 17:35 | disposition home or self-care (01) ==
PROVIDERS: PCP Nurse Practitioner Family; Visit Provider Nurse Practitioner Family
DX: R06.02 Shortness of breath (principal)
CPT/HCPCS: 71046

== ENCOUNTER 2024-08-19 21:24 | Emergency (ER) | payer BC, SELFPAY ==
--- NOTE | ~2024-08-19 | XR_ITS ---
EXAMINATION: XR chest 2V Exam Date/Time: 08/19/2024 21:42 HOSPICE CLINICAL MANAGER HISTORY: chest pain Comparison: 09/30/2023. RESULT: Lines, tubes, and devices: None. Lungs and pleura: Mild diffuse reticulonodular opacities. Cardiomediastinal silhouette: Stable. Other: No acute osseous or upper abdominal finding. IMPRESSION: Pulmonary opacities may represent respiratory bronchiolitis in the appropriate clinical context. Reviewed, dictated and finalized at location K. ICE CLINICAL MANAGER
[2024-08-19 21:26] VITALS: BP 153/90; PULSE 85; RESP 16; TEMP 36; O2SAT 100
--- NOTE | 2024-08-19 21:26 | ECG_ITS ---
Test Date: 2024-08-19 21:31:20 Measurements Intervals [place] Rate: 71 P: 50 [place]: 177 QRS: -43 QRSD: 79 T: 39 QT: 357 QTc: 390 Interpretive Statements SINUS RHYTHM LOW QRS VOLTAGE IN PRECORDIAL LEADS CONSIDER ANTERIOR INFARCT, AGE INDETERMINATE BORDERLINE ST-T WAVE ABNORMALITY- ANT/HIGH LAT LEADS BASELINE ARTIFACT- I, II, III, AVR, AVL, V1 ABNORMAL ECG No previous ECG available for comparison Electronically Signed On 08-20-2024 07:42:21 CUSTOM WOOD STAIR BUILDER by Sean Richard D.O.
[2024-08-19 21:48] LABS: Basophils Absolute Auto 0.1 K/mm3 (0.0-0.1); Basophils Percent Auto 0.7 % (0.2-1.2); Eosinophils Absolute Auto 0.5 K/mm3 (0-0.3); Eosinophils Percent Auto 5.5 % (0-4.4); Hematocrit 40.7 % (37.0-47.0); Immature Granulocyte Absolute 0.02 K/mm3 (0.00-0.031); Immature Granulocyte Percent A 0.2 % (0-0.5); Lymphocytes Absolute Auto 3.43 K/mm3 (0.9-3.2); Lymphocytes Percent Auto 38.7 % (18.3-44.2); Mean Corpuscular HGB Conc 34.4 g/dl (32-36); Mean Corpuscular Hemoglobin 32.8 pg (26-34); Mean Corpuscular Volume 95.3 fl (80-100); Mean Platelet Volume 8.6 fl (7.4-10.4); Monocytes Absolute Auto 0.8 K/mm3 (0.1-0.6); Monocytes Percent Auto 8.9 % (2.6-8.5); Neutrophils Absolute Auto 4.1 K/mm3 (1.3-6.7); Platelet Count Result 287 k/mm3 (150-375); Red Blood Count 4.27 M/mm3 (4.2-5.4); Red Cell Distribution Width 11.9 % (11.5-14.5); White Blood Count 8.9 K/mm3 (4.5-10.0)
[2024-08-19 21:58] LABS: INR 0.9; Prothrombin Time 12.7 Seconds (11.1-14.7)
[2024-08-19 21:59] LABS: Alanine Aminotransferase 28 U/L (6-35); Albumin Level 4.6 g/dL (3.5-5.1); Alkaline Phosphatase 81 U/L (38-126); Anion Gap 7 mmol/L (4-12); Aspartate Amino Transferase 30 U/L (14-36); Bilirubin,Total 0.6 mg/dL (0.2-1.3); Blood Urea Nitrogen 17 mg/dL (7-17); Calcium 9.6 mg/dL (8.4-10.2); Carbon Dioxide 31 mmol/L (22-30); Chloride 99 mmol/L (98-107); Estimated CRCL calculation 83 ml/min; Estimated Glomerular Filt Rate > 60; Glucose 140 mg/dL (65-110); Lipase 96 U/L (23-300); Partial Thromboplastin Time 29.6 Seconds (22.3-36.8); Potassium 3.4 mmol/L (3.4-5.0); Sodium 137 mmol/L (137-145)
[2024-08-19 23:03] LABS: Troponin I < 0.012 ng/mL (0.000-0.034)
[2024-08-20 00:48] VITALS: O2SAT 99
[2024-08-20] MEDS: NITROGLYCERIN SL 0.4 MG TABLET SUBLINGUAL (01:07)
[2024-08-20 01:08] VITALS: BP 145/76; PULSE 67; RESP 15; O2SAT 100
[2024-08-20 01:10] VITALS: PULSE 68
[2024-08-20 01:12] LABS: Troponin I < 0.012 ng/mL (0.000-0.034)
--- NOTE | 2024-08-20 02:23 | ED.GENADULT ---
HPI - General Adult General Chief complaint: Chest Pain Stated complaint: i think im having a heart attack Time Seen by Provider: 08/20/24 00:38 History of Present Illness HPI narrative: patient is a 58-year-old female who presents emergency department chief complaint of chest pain. Patient reports for the last 2-3 days she has been having pain in the left side of her chest reports he has some discomfort in her left arm patient reports having no fever no cough no congestion. Related Data Allergies Allergy/AdvReac Type Severity Reaction Status Date / Time sulfur dioxide Allergy Unknown Itching Verified 08/19/24 21:25 Review of Systems Review of Systems: A 10 system review of systems was completed on the patient and is negative except for what is stated in the HPI. Nursing and ancillary documentation was reviewed. [facility] Past Medical History Medical History Abnormal finding on urinalysis Anxiety Back pain Cephalgia Dyspnea on exertion Elevated fasting glucose Encounter for immunization Encounter for vitamin deficiency screening Encounter to establish care Essential hypertension Hot flashes Hyperglycemia Hyperlipidemia Left shoulder pain LLQ pain Low back pain radiating to both legs Osteoarthritis of right knee Right knee pain Right ventricular enlargement RUQ pain Screening, deficiency anemia, iron Shortness of breath Sleep apnea Urinary frequency Surgical History Surgical History History of History of eye surgery Hx of tonsillectomy Family History Family History Father Hypertension Heart disease, Onset Age: 55 Alcoholism Depression Grandparent Family history of alcoholism Sibling Dementia Sanford-Creutzfeldt disease Other Alcoholism Hypertension Sibling Asthma Hypertension Mother Cerebrovascular accident Social History Social History Smoking status: Never smoker Second hand tobacco smoke exposure: No Alcohol intake: current Alcohol use details: Occasionally Substance use: never Substance use type: does not use Do You Feel Safe in your Home?: Yes Lack of Transportation: No Lack of Food: Never True Current Housing: I Have Housing Concerned About Future Housing: No Difficulty Paying Gas/Electric Bills: No Difficulty Paying for Meds: No Currently Unemployed: No Education: Trade/Vocational Certificate Difficulty w/ Childcare or Family Care: No Living arrangements: with family Occupation/Education: unemployed Gender identity (if verbalized by the patient): Female Spiritual care concerns: No Agree to blood products: Yes Exam Narrative: GENERAL: Well-appearing, well-nourished, and in no acute distress. HEAD: Normocephalic, atraumatic. EYES: PERRLA and EOMI. ENT: Nares clear, no rhinorrhea or epistaxis. Mucous membranes moist. NECK: Supple. CHEST: Clear to auscultation. No respiratory distress. HEART: Regular rate and rhythm. No murmur heard. Normal peripheral pulses. ABDOMEN: Soft, nontender, nondistended, normal active bowel sounds. EXTREMITIES: Normal range of motion. No edema. SKIN: Warm, dry, no rash. NEURO: No focal deficits. Alert and oriented x3. PSYCH: Normal mood and affect. Course Vital Signs Vital signs: Vital Signs Temperature 36.0 C L 08/19/24 21: Pulse Rate 85 08/19/24 21: Respiratory Rate 16 08/19/24 21: Blood Pressure 153/90 H 08/19/24 21:26 Pulse Oximetry 100 08/19/24 21:26 Oxygen Delivery Room Air 08/19/24 21: Temperature 36.0 C L 08/19/24 21: Pulse Rate 68 08/20/24 01:10 Respiratory Rate 15 08/20/24 01:08 Blood Pressure 145/76 H 08/20/24 01:08 Pulse Oximetry 100 08/20/24 01:08 Oxygen Delivery Room Air 08/20/24 00:48 Medical Decision Making [facility] Narrative Medical decision making narrative: Differential diagnosis includes electrolyte abnormality, ACS, chest x-ray showed no focal infiltrates are was question as to whether there was some bronchitis initial troponin was negative repeat troponin was negative. CBC was within normal limits CMP showed no acute abnormality patient is feeling much better and the patient discharged home follow-up with primary care Vital Signs Vital Signs: Vital Signs Temperature 36.0 C L 08/19/24 21: Pulse Rate 85 08/19/24 21:26 Respiratory Rate 16 08/19/24 21:26 Blood Pressure 153/90 H 08/19/24 21:26 Pulse Oximetry 100 08/19/24 21:26 Oxygen Delivery Room Air 08/19/24 21: Temperature 36.0 C L 08/19/24 21:26 Pulse Rate 68 08/20/24 01:10 Respiratory Rate 15 08/20/24 01:08 Blood Pressure 145/76 H 08/20/24 01:08 Pulse Oximetry 100 08/20/24 01:08 Oxygen Delivery Room Air 08/20/24 00:48 Lab Data 08/19/24 21:38 08/19/24 21:38 Labs: Lab Results 08/19/24 08/20/24 Range/Units 21:38 00:39 WBC 8.9 (4.5-10.0) K/mm3 RBC 4.27 (4.2-5.4) M/mm3 Hgb 14.0 (12.0-15.0) g/dL Hct 40.7 (37.0-47.0) % MCV 95.3 (80-100) fl MCH 32.8 (26-34) pg MCHC 34.4 (32-36) g/dl RDW 11.9 (11.5-14.5) % Plt Count 287 (150-375) k/mm3 MPV 8.6 (7.4-10.4) fl Immature Gran % (Auto) 0.2 (0-0.5) % Neut % (Auto) 46.0 (45.5-73.1) % Lymph % (Auto) 38.7 (18.3-44.2) % [place] % (Auto) 8.9 H (2.6-8.5) % Eos % (Auto) 5.5 H (0-4.4) % Baso % (Auto) 0.7 (0.2-1.2) % Lymph # (Auto) 3.43 H (0.9-3.2) K/mm3 [place] # (Auto) 0.8 H (0.1-0.6) K/mm3 Eos # (Auto) 0.5 H (0-0.3) K/mm3 Baso # (Auto) 0.1 (0.0-0.1) K/mm3 Abs Immat Gran (auto) 0.02 (0.00-0.031) K/mm3 Absolute Neuts (auto) 4.1 (1.3-6.7) K/mm3 Absolute Nucleated RBC 0.000 (0.0-0.012) K/mm3 Nucleated RBC % 0.0 (0.0-0.2) % PT 12.7 (11.1-14.7) Seconds INR 0.9 APTT 29.6 (22.3-36.8) Seconds Sodium 137 (137-145) mmol/L Potassium 3.4 (3.4-5.0) mmol/L Chloride 99 (98-107) mmol/L Carbon Dioxide 31 H (22-30) mmol/L Anion Gap 7 (4-12) mmol/L BUN 17 (7-17) mg/dL Creatinine 0.70 (0.7-1.0) mg/dL Estim Creat Clear Calc 83 ml/min Estimated GFR > 60 (59 - ) Glucose 140 H (65-110) mg/dL Calcium 9.6 (8.4-10.2) mg/dL Total Bilirubin 0.6 (0.2-1.3) mg/dL AST 30 (14-36) U/L ALT 28 (6-35) U/L Alkaline Phosphatase 81 (38-126) U/L Troponin I < 0.012 < 0.012 (0.000-0.034) ng/mL Total Protein 8.0 (6.3-8.2) g/dL Albumin 4.6 (3.5-5.1) g/dL Lipase 96 (23-300) U/L Discharge Plan Discharge Clinical Impression: Atypical chest pain Patient Disposition: Home, Self-Care Condition: Stable Instructions: Antibiotic Form, Chest Pain (ED) Prescriptions: No Action duloxetine 30 mg capsule,delayed release(DR/EC) 30 mg PO DAILY Qty: 90 3RF olmesartan 20 mg tablet 20 mg PO DAILY Qty: 90 3RF buspirone 5 mg tablet See Rx Instructions PO BID Qty: 100 0RF Rx Instructions: start 1 tab (5mg) 2x/day and increase by 1 tab (5mg) every 3-5 days up to max dose 3 tabs (15mg) 2x/day Centrum Silver Women 8 mg iron-400 mcg-300 mcg tablet 1 tablet PO DAILY Qty: 90 0RF fluticasone propionate 50 mcg/actuation spray,suspension 1 spray intranasal DAILY Qty: 16 11RF Rx Instructions: administer into each nostril aspirin 81 mg tablet,delayed release (DR/EC) See Rx Instructions .ROUTE .COMPLEX Qty: 90 0RF Dose Instruction: TAKE 1 TABLET BY MOUTH EVERY DAY Rx Instructions: TAKE 1 TABLET BY MOUTH EVERY DAY cholecalciferol (vitamin D3) 125 mcg (5,000 unit) capsule 125 mcg PO DAILY Qty: 90 3RF albuterol sulfate 90 mcg/actuation HFA aerosol inhaler 2 inh inhalation Q4H PRN (Reason: shortness of breath) Qty: 8.5 2RF Rx Instructions: INHALE 2 PUFFS BY MOUTH EVERY 4 HOURS NEEDED FOR SHORTNESS OF BREATH OR WHEEZING Follow-up/Referrals: Andria Degroot NP [Primary Care Provider] - Time of Disposition: 02:24
[2024-08-20 02:31] VITALS: BP 138/69; PULSE 67; RESP 12; TEMP 36.6; O2SAT 97
== END 2024-08-20 02:43 | disposition home or self-care (01) ==
PROVIDERS: Emergency Provider Emergency Medicine; PCP Nurse Practitioner Family
DX: R07.89 Other chest pain (principal); I10 Essential (primary) hypertension; E78.5 Hyperlipidemia, unspecified; M17.11 Unilateral primary osteoarthritis, right knee; G47.30 Sleep apnea, unspecified; R94.31 Abnormal electrocardiogram [ECG] [EKG]
CPT/HCPCS: 36415; 71046; 80053; 83690; 84484; 85025; 85610; 85730; 93005; 99284; A9270

== ENCOUNTER 2025-08-15 15:23 | Outpatient (CLI) | payer BC, SELFPAY ==
--- NOTE | ~2025-08-15 | MM_ITS ---
EXAMINATION: MM screening angella BI w paty HISTORY: Screening TECHNIQUE: Craniocaudal and mediolateral oblique 3-D tomosynthesis images were obtained and synthetic 2-D images were generated. CAD analysis was submitted and interpreted. COMPARISON: Comparison to multiple prior studies sequentially, with oldest reviewed study dated 10/09/2019. BREAST PARENCHYMAL COMPOSITION: Dense: The breasts are heterogeneously dense, which may obscure small masses FINDINGS: There is no evidence of suspicious mass, calcification, or architectural distortion to suggest malignancy in either breast. There has been no suspicious interval change. IMPRESSION: 1. No mammographic evidence of malignancy. 2. Recommend routine screening mammography in one year. BI-RADS Category 1: Negative Reviewed, dictated and finalized at location B. ING INSPECTOR
== END 2025-08-15 15:24 | disposition home or self-care (01) ==
PROVIDERS: PCP Nurse Practitioner; Visit Provider Nurse Practitioner
DX: Z12.31 Encounter for screening mammogram for malignant neoplasm of breast (principal)
CPT/HCPCS: 77063; 77067